=== PATIENT | male | born 1985 | race African-American/Black ===

== ENCOUNTER 2024-11-06 22:33 | Emergency (ER) | payer SELFPAY ==
[2024-11-06] MEDS ORDERED: Fluorescein Opthalmic Strip ONE (22:40)
[2024-11-06] MEDS ORDERED: Tetracaine 0.5% PF 4 ML BOT ONE (22:40)
== END 2024-11-06 23:02 | disposition home or self-care (01) ==
LOC: NAV ERS 22:33
DX: S05.02XA Injury of conjunctiva and corneal abrasion without foreign body, left eye, initial encounter (principal); W50.0XXA Accidental hit or strike by another person, initial encounter; Y93.67 Activity, basketball
CPT/HCPCS: 99283